=== PATIENT | female | born 1985 | race Caucasian/White ===

== ENCOUNTER 2020-03-20 12:44 | Emergency (ER) | payer OTHER, SELFPAY ==
[2020-03-20 12:46] VITALS: BP 116/94; PULSE 78; RESP 15; TEMP 36.2; O2SAT 99; BMI 28.1
--- NOTE | 2020-03-20 13:02 | ED.VISSUMM ---
- ER Visit Summary Date of Service: 03/20/20 Chief Complaint: Laceration History of Present Illness: The patient is a 34 F who fell and cut her nose on a fire ring. Unsure of her tetanus status. No loss of consciousness. No blood thinners. No new nasal drainage or ear drainage. Physical Examination: Vital signs reviewed. She has a linear abrasion to her mid nose on the right and a 2 cm partial-thickness laceration to her distal nose more towards the right side. No septal hematoma. No drainage. No raccoon eyes or lind sign. Neck is unremarkable. Good strength and sensation. Test Results: None indicated Emergency Department Course and Treatment: The wounds were cleaned and explored. We will close but we can with tissue adhesive. The laceration was closed with 3 simple interrupted sutures by the physician shipping assistant. The patient tolerated this well. Tetanus updated. Patient was given wound care instructions and will be discharged for follow-up. Treatment Plan: As above Disposition: Discharged Impression: 1. Nasal abrasion 2. Nasal laceration 2 cm This note was generated with [employer] dictation software. It may contain incorrect words, spelling, and punctuation that were not noted in review of the chart prior to signing ED Disposition - Plan for ED Patient: Instructions: ED Laceration Facial Sutr Tape Referrals: Lynne Cool MD [STAFF PHYSICIAN] -
[2020-03-20] MEDS: Diphth,Pertuss(Acell),Tet Vac 0.5 ML Vial IM (13:25)
== END 2020-03-20 13:37 | disposition home or self-care (01) ==
PROVIDERS: Emergency Provider Emergency Medicine
DX: S01.21XA Laceration without foreign body of nose, initial encounter (principal); W19.XXXA Unspecified fall, initial encounter; Y93.9 Activity, unspecified; Y92.9 Unspecified place or not applicable; Y99.9 Unspecified external cause status; Z23 Encounter for immunization
CPT/HCPCS: 12011; 90471; 90715; 99281